=== PATIENT | male | born 1945 | race Caucasian/White ===

== ENCOUNTER 2018-03-07 01:06 | Emergency (ER) | payer OTHER ==
[~2018-03-07] VITALS: Ht 182.9 cm; Wt 88.7 kg
[~2018-03-07 01:06] MED LIST: ATEN25TA PO; DOXY1TAB6 PO; ESOM20CA PO; LEVO125T5 PO; THEA1CAP PO
[2018-03-07 01:10] VITALS: TEMP 36.7; Ht 182.9 cm; Wt 88.7 kg
--- NOTE | 2018-03-07 02:02 | EMERGENCY ROOM VISIT NOTE ---
History Report prepared by Rudy: India Cintron Under the Supervision of: Dr. Jennifer Giron D.O. First contact with patient: 01:40 Chief Complaint: ILLNESS Stated Complaint: CHEST TIGHTNESS,LIKE FLU History of Present Illness The patient is a 72 year old male who presents to the Emergency Room with complaints of persistent left ear ache since March 05, 2018. He states that he had chills for five hours the day before he developed the ear pain. He was seen by his PCP at that time and was diagnosed with a left ear infection and influenza B and was prescribed Cefdinir. He states his brain feels sore. He notes headache, eye pain, cough associated with chest tightness, and joint pain. He states that he has been alternating Tylenol and Ibuprofen, though no relief. He denies any history of migraines. He denies a history of regular sinus infections. Source of History: patient Onset: March 05, 2018 Position: ear (left) Quality: ache Timing: other (persistent) Associated Symptoms: + chills, + headache, + cough, + chest pain (tightness) Note: Notes eye pain and joint pain. Review of Systems See HPI for pertinent positives & negatives. A total of 10 systems reviewed and were otherwise negative. Past Medical & Surgical Medical Problems: (1) Cholelithiasis Nos (2) Disorders Of Thyroid Nec (3) Hypertension Nos (4) Hypothyroidism Nos Surgical Problems: (1) History of cholecystectomy Family History Cancer Diabetes mellitus Heart disease Social History Smoking Status: Current Every Day Smoker Smokeless Tobacco Use: No Alcohol Use: none Drug Use: none Marital Status: Housing Status: lives with family Occupation Status: employed Current/Historical Medications Scheduled Atenolol (Tenormin), 25 MG PO DAILY Cefdinir (Omnicef), 300 MG PO Q12H Levothyroxine Sodium (Levothyroxine Sodium), 137 MCG PO DAILY Allergies Coded Allergies: Sulfa Antibiotics (Verified Allergy, Unknown, rash, 01/14/15) Naproxen (Verified Adverse Reaction, Mild, RASH, 01/14/15) Physical Exam Vital Signs Date Time Temp Pulse Resp B/P (MAP) Pulse Ox O2 Delivery O2 Flow Rate FiO2 03/07/18 05:17 82 20 144/87 98 03/07/18 04:21 62 18 141/87 98 Room Air 03/07/18 03:17 62 03/07/18 03:13 61 18 141/88 96 Room Air 03/07/18 01:10 36.7 76 20 125/80 97 Room Air Physical Exam HEENT: Head - normocephalic and atraumatic Pupils are equal, round, and reactive to light. Extraocular eye muscles are intact, and sclera are anicteric. Ears - Left TM was scarred down with no discernible cone of light, Right TM normal. Nose - moist nasal mucosa without discharge. Mouth - moist buccal mucosa. Oropharynx is nonerythematous and there is no tonsillar exudate or edema noted. Neck: Supple; no JVD, nuchal rigidity, cervical lymphadenopathy, or auscultated bruits. Heart: Regular rate and rhythm. There is a normal S1 and S2 with no murmurs, clicks, or gallops appreciated. Lungs: Clear to auscultation bilaterally with no wheezes, rales, or rhonchi. Abdomen: Soft, completely nontender, nondistended, with good bowel sounds. There are no palpable pulsatile masses or hepatosplenomegaly. There is no guarding, rigidity, or rebound noted. Extremities: No evidence of cyanosis, clubbing, or edema. There are easily palpable peripheral pulses. Skin: warm and dry with good turgor and no rashes. Medical Decision & Procedures ER Provider Diagnostic Interpretation: Radiology results as stated below per my review and interpretation: CHEST XR: No cardiomegaly. No obvious pulmonary infiltrate or consolidation. Radiology results as stated below per my review and the radiologist's interpretation: CT SINUSES: Fluid level in the right maxillary sinus indicates acute sinusitis. Underpneumatized left mastoid. Left middle ear is aerated. No regional soft tissue swelling. Radiologist: Derek Obrien MD Study ready at 03:10 and initial results transmitted at 03:26 CT HEAD: Fluid level in the right maxillary sinus suggesting acute sinusitis. No acute intracranial findings. Mastoids and middle ears appear to be clear. Radiologist: Derek Obrien MD Study ready at 03:10 and initial results transmitted at 03:12 Laboratory Results 03/07/18 02:50 Red Blood Count 4.87, Mean Corpuscular Volume 85.2, Mean Corpuscular Hemoglobin 29.4, Mean Corpuscular Hemoglobin Concent 34.5, Mean Platelet Volume 9.2, Neutrophils (%) (Auto) 72.3, Lymphocytes (%) (Auto) 13.5, Monocytes (%) (Auto) 13.8, Eosinophils (%) (Auto) 0.2, Basophils (%) (Auto) 0.0, Neutrophils # (Auto ) 2.94, Lymphocytes # (Auto) 0.55, Monocytes # (Auto) 0.56, Eosinophils # (Auto ) 0.01, Basophils # (Auto) 0.00 03/07/18 02:50 Test 03/07/18 02:50 White Blood Count 4.07 K/uL (4.8-10.8) Red Blood Count 4.87 M/uL (4.7-6.1) Hemoglobin 14.3 g/dL (14.0-18.0) Hematocrit 41.5 % (42-52) Mean Corpuscular Volume 85.2 fL (80-100) Mean Corpuscular Hemoglobin 29.4 pg (25-34) Mean Corpuscular Hemoglobin Concent 34.5 g/dl (32-36) Platelet Count 127 K/uL (130-400) Mean Platelet Volume 9.2 fL (7.4-10.4) Neutrophils (%) (Auto) 72.3 % Lymphocytes (%) (Auto) 13.5 % Monocytes (%) (Auto) 13.8 % Eosinophils (%) (Auto) 0.2 % Basophils (%) (Auto) 0.0 % Neutrophils # (Auto) 2.94 K/uL (1.4-6.5) Lymphocytes # (Auto) 0.55 K/uL (1.2-3.4) Monocytes # (Auto) 0.56 K/uL (0.11-0.59) Eosinophils # (Auto) 0.01 K/uL (0-0.5) Basophils # (Auto) 0.00 K/uL (0-0.2) RDW Standard Deviation 46.5 fL (36.4-46.3) RDW Coefficient of Variation 14.8 % (11.5-14.5) Immature Granulocyte % (Auto) 0.2 % Immature Granulocyte # (Auto) 0.01 K/uL (0.00-0.02) Anion Gap 4.0 mmol/L (3-11) Est Creatinine Clear Calc Drug Dose 92.0 ml/min Estimated GFR () 103.8 Estimated GFR (Non- 89.6 BUN/Creatinine Ratio 13.2 (10-20) Calcium Level 8.1 mg/dl (8.5-10.1) Laboratory results per my review. Medications Administered Medications (Trade) Dose Ordered Sig/Kavya Route Start Time Stop Time Status Last Admin Dose Admin Sodium Chloride 1,000 ml @ 999 mls/hr Q1H1M STAT IV 03/07/18 02:35 03/07/18 03:35 DC 03/07/18 03:12 999 MLS/HR Hydromorphone HCl (Dilaudid Inj) 1 mg NOW STAT IV 03/07/18 02:35 03/07/18 02:39 DC 03/07/18 02:53 1 MG Ketorolac Tromethamine (Toradol Inj) 30 mg NOW STAT IV 03/07/18 04:00 03/07/18 04:01 DC 03/07/18 04:17 30 MG Doxycycline Hyclate (Vibramycin Cap) 100 mg ONE ONCE PO 03/07/18 04:45 03/07/18 04:46 DC 03/07/18 05:00 100 MG Procedure 0235: Ordered Dilaudid 1 mg IV and Sodium Chloride 1,000 ml @ 999 mls/hr IV. 0400: Ordered Toradol 30 mg IV Ordered Doxycycline 100 mg PO ED Course 0146: Past medical records reviewed. The patient was evaluated in room A10. A complete history and physical exam was performed. IV lock was established. Labs were drawn as above. 0235: Ordered Dilaudid 1 mg IV for the headache and Sodium Chloride 1,000 ml @ 999 mls/hr IV. 0357: I reassessed the patient at this time. He reports moderate relief in his head. He is requesting more pain medication for the headache. He developed a pain in his right side of his abdomen. He reports the abdominal pain has been ongoing for a long time and is intermittent. He has had two US previously, which were normal. 0400: Ordered Toradol 30 mg IV 0438: I ordered Augmentin for the acute sinusitis. I reassessed the patient at this time. He is feeling better. The headache is gone. He states that he is allergic to Augmentin. 0445: Ordered doxycycline-100 mg 0458: I reassessed the patient at this time. He states that he has taken Doxycycline before without issue. Prescribed Doxycycline 100 mg PO. I discussed the results and treatment plan with the patient. I answered all pertaining questions that he had. He expressed understanding and verbalized agreement. The patient will be discharged home. Medical Decision The patient is a 72 year old male who presents to the ED with severe headache and cough. Differential diagnosis includes meningitis, influenza, sinusitis, viral illness, and PNA. Lab results showed: WBC 4.0; Stable H&H. Normal renal function. Normal glucose. This is a 72-year-old male patient who presents to the emergency department with a complaint that his brain was hurting and that he had cough. The patient had previously been diagnosed with influenza and a left otitis media. He was started on antibiotics-Cefdinir. The patient states that he is not getting any better. He was unable to sleep due to the head pain. CT scan of the brain was unremarkable. CT scan of the sinuses revealed a right maxillary sinusitis. This is most likely the cause of the patient's head pain. He had no significant leukocytosis or fever to suggest sepsis or a more significant infection. I will switch the patient's antibiotic from Cefdinir to doxycycline. The patient was feeling much better at the time of discharge. I have asked him to follow-up with his PCP on Friday if he has persistent symptoms. Medication Reconcilliation Current Medication List: was personally reviewed by me Blood Pressure Screening Patient's blood pressure: Normal blood pressure Impression Primary Impression: Maxillary sinusitis, acute Scribe Attestation The scribe's documentation has been prepared under my direction and personally reviewed by me in its entirety. I confirm that the note above accurately reflects all work, treatment, procedures, and medical decision making performed by me. Departure Information Dispostion Home / Self-Care Referrals No Doctor, Assigned (PCP) Forms HOME CARE DOCUMENTATION FORM, IMPORTANT VISIT INFORMATION, WORK / SCHOOL INSTRUCTIONS Patient Instructions ED Sinusitis Garrett Diaz, My [facility] Additional Instructions Rest with your head elevated. Stop the Cefdinir Take doxycycline - every 12 hours for next 7 days If symptoms persist, follow up with PCP Problem Qualifiers Primary Impression: Maxillary sinusitis, acute Recurrence: non-recurrent Qualified Codes: J01.00 - Acute maxillary sinusitis, unspecified
[2018-03-07] MEDS ORDERED: LEVO137T3 PO (02:08)
[2018-03-07] MEDS ORDERED: CEFD1CAP14 PO (02:10)
[2018-03-07] MEDS ORDERED: HYDROmorphone INJ 1 MG/ML SYR IV STA (02:35)
[2018-03-07] MEDS ORDERED: SODIUM CHLORIDE 0.9% 1000ML 1,000 ML IV STA (02:35)
[2018-03-07 03:03] LABS: EOS % 0.2 %; EOS ABS # 0.01 K/uL (0-0.5); HEMATOCRIT 41.5 % (42-52); HEMOGLOBIN 14.3 g/dL (14.0-18.0); IG# 0.01 K/uL (0.00-0.02); LYMPH % 13.5 %; LYMPH ABS # 0.55 K/uL (1.2-3.4); MEAN CELL VOLUME 85.2 fL (80-100); MEAN CORPUSCULAR HEMOGLOBIN 29.4 pg (25-34); MEAN CORPUSCULAR HGB CONC 34.5 g/dl (32-36); MEAN PLATELET VOLUME 9.2 fL (7.4-10.4); MONO % 13.8 %; MONO ABS # 0.56 K/uL (0.11-0.59); NEUT % 72.3 %; NEUT ABS # 2.94 K/uL (1.4-6.5); PLATELET COUNT 127 K/uL (130-400); RED CELL DISTRIBUTION WIDTH CV 14.8 % (11.5-14.5); RED CELL DISTRIBUTION WIDTH SD 46.5 fL (36.4-46.3); WHITE BLOOD COUNT 4.07 K/uL (4.8-10.8)
[2018-03-07 03:23] LABS: CALCIUM 8.1 mg/dl (8.5-10.1); CREATININE 0.82 mg/dl (0.60-1.40); POTASSIUM 3.9 mmol/L (3.5-5.1)
[2018-03-07] MEDS ORDERED: KETOROLAC TROMETHAMINE 30 MG/ML VIAL IV STA (04:00)
[2018-03-07] MEDS ORDERED: AMOXICILLIN/CLAVULANATE TAB 875 MG TAB PO ONE (04:45)
[2018-03-07] MEDS ORDERED: DOXYCYCLINE HYCLATE 100 MG CAP PO ONE (04:45)
[2018-03-07 05:17] VITALS: BP 144/87; PULSE 82; O2SAT 98
--- NOTE | 2018-03-07 06:12 | DIAGNOSTIC IMAGING REPORT ---
HEAD WITHOUT CONTRAST (CT) CT DOSE: HISTORY: Headache. Mental status change. severe [place] TECHNIQUE: Multiaxial CT images of the head were performed without the use of intravenous contrast. A dose lowering technique was utilized adhering to the principles of ALARA. Comparison: None. Findings: Mucosal thickening of the ethmoid and right maxillary sinuses. Small amount of fluid within the right maxillary sinus. Sclerosis left mastoid air cells. The calvarium and skull base are intact. The ventricles and sulci are within normal limits. There is no mass, hematoma, midline shift, or acute infarct. Impression: 1. No acute intracranial abnormality. 2. Mild age-related atrophy and chronic small vessel change. 3. Sclerosis left mastoid air cells. 4. Mucosal thickening and fluid within the right maxillary as well as ethmoid sinuses. The above report was generated using voice recognition software. It may contain grammatical, syntax or spelling errors. Electronically signed by: Ernesto Galloway M.D. 03/07/2018 6:11 AM Dictated Date/Time: 03/07/2018 6:09 AM
--- NOTE | 2018-03-07 06:15 | DIAGNOSTIC IMAGING REPORT ---
SINUSES-MAXILLOFACIAL W/O CT DOSE: HISTORY: Pain. Headache. eval for fluid collection TECHNIQUE: Multiaxial CT images of the paranasal sinuses were performed and reformatted in the coronal plane without the use of contrast. A dose lowering technique was utilized adhering to the principles of ALARA. COMPARISON: None. FINDINGS: Moderate hyperplastic change nasal turbinates. Mild/moderate underlying polypoid change. Moderate mucosal thickening of the frontal ethmoid and right maxillary sinuses. No bony erosive process. The right ostiomeatal unit is occluded. Severe soft tissue narrowing left ostiomeatal unit. Sclerosis left mastoid air cells. The orbits are unremarkable. IMPRESSION: 1. Sclerosis left mastoid air cells. 2. Mucosal thickening of the bulk of the major sinuses. 3. Hyperplastic and polypoid change of the nasal turbinates bilaterally. The above report was generated using voice recognition software. It may contain grammatical, syntax or spelling errors. Electronically signed by: Ernesto Galloway M.D. 03/07/2018 6:14 AM Dictated Date/Time: 03/07/2018 6:12 AM
--- NOTE | 2018-03-07 06:17 | DIAGNOSTIC IMAGING REPORT ---
CHEST 2 VIEWS ROUTINE CLINICAL HISTORY: cough/flu dyspnea COMPARISON STUDY: 01/14/2015 FINDINGS: The bones soft tissues and hemidiaphragms are normal. The cardiomediastinal silhouette is normal. The lungs are clear. The pulmonary vasculature is normal. IMPRESSION: Negative chest. The above report was generated using voice recognition software. It may contain grammatical, syntax or spelling errors. Electronically signed by: Ernesto Galloway M.D. 03/07/2018 6:15 AM Dictated Date/Time: 03/07/2018 6:15 AM
[2018-03-07] MEDS ORDERED: DOXY100C76 PO (07:03)
== END 2018-03-07 05:18 | disposition home or self-care (01) ==
LOC: C.EDB 01:08 → C.EDA 05:18
DX: J01.00 Acute maxillary sinusitis, unspecified (principal); I10 Essential (primary) hypertension; E03.9 Hypothyroidism, unspecified; F17.200 Nicotine dependence, unspecified, uncomplicated; Z90.49 Acquired absence of other specified parts of digestive tract; Z88.1 Allergy status to other antibiotic agents; Z88.6 Allergy status to analgesic agent; Z83.3 Family history of diabetes mellitus

== ENCOUNTER 2018-03-23 07:24 | Emergency (ER) | payer OTHER ==
[~2018-03-23] VITALS: Ht 182.9 cm; Wt 88.0 kg
[~2018-03-23 07:24] MED LIST changes: +CEFD1CAP14 PO; +DOXY100C76 PO; -DOXY1TAB6 PO; -ESOM20CA PO; -LEVO125T5 PO; +LEVO137T3 PO; -THEA1CAP PO
[2018-03-23 07:29] VITALS: TEMP 37.2; O2SAT 97; Ht 182.9 cm; Wt 88.0 kg
[2018-03-23] MEDS ORDERED: SODIUM CHLORIDE 0.9% 1000ML 1,000 ML IV STA (07:36)
[2018-03-23 08:02] LABS: BASO % 0.1 %; BASO ABS # 0.01 K/uL (0-0.2); EOS % 0.4 %; EOS ABS # 0.06 K/uL (0-0.5); HEMATOCRIT 43.7 % (42-52); HEMOGLOBIN 15.1 g/dL (14.0-18.0); IG# 0.08 K/uL (0.00-0.02); LYMPH % 7.9 %; LYMPH ABS # 1.06 K/uL (1.2-3.4); MEAN CELL VOLUME 86.2 fL (80-100); MEAN CORPUSCULAR HEMOGLOBIN 29.8 pg (25-34); MEAN CORPUSCULAR HGB CONC 34.6 g/dl (32-36); MEAN PLATELET VOLUME 9.6 fL (7.4-10.4); MONO % 11.1 %; MONO ABS # 1.49 K/uL (0.11-0.59); NEUT % 79.9 %; NEUT ABS # 10.75 K/uL (1.4-6.5); PLATELET COUNT 154 K/uL (130-400); RED CELL DISTRIBUTION WIDTH CV 15.3 % (11.5-14.5); RED CELL DISTRIBUTION WIDTH SD 48.3 fL (36.4-46.3); WHITE BLOOD COUNT 13.45 K/uL (4.8-10.8)
[2018-03-23 08:20] LABS: ALBUMIN 3.4 gm/dl (3.4-5.0); ALT/SGPT 27 U/L (12-78); AST/SGOT 16 U/L (15-37); BLOOD UREA NITROGEN 11 mg/dl (7-18); CALCIUM 8.7 mg/dl (8.5-10.1); CARBON DIOXIDE 25 mmol/L (21-32); CREATININE 0.91 mg/dl (0.60-1.40); GLUCOSE 125 mg/dl (70-99); LIPASE 211 U/L (73-393); POTASSIUM 4.1 mmol/L (3.5-5.1); SODIUM 138 mmol/L (136-145)
--- NOTE | 2018-03-23 08:20 | DIAGNOSTIC IMAGING REPORT ---
CHEST ONE VIEW PORTABLE CLINICAL HISTORY: EVALUATE ALTERED MENTAL STATUS/WEAKNESS COMPARISON STUDY: Chest radiograph March 07, 2018. FINDINGS: Lung volumes are normal. No pneumothorax or pleural effusion is noted. Cardiac size is normal. Mediastinal contours are normal. There is no evidence for pulmonary edema. There is no consolidation. The appearance of the chest is unchanged. IMPRESSION: No acute cardiopulmonary findings. Electronically signed by: John Nova M.D. 03/23/2018 8:18 AM Dictated Date/Time: 03/23/2018 8:15 AM
[2018-03-23 08:29] LABS: ALKALINE PHOSPHATASE 80 U/L (45-117); CKMB < 0.5 ng/ml (0.5-3.6); TOTAL PROTEIN 7.1 gm/dl (6.4-8.2)
[2018-03-23 09:22] VITALS: BP 118/80; PULSE 63
--- NOTE | 2018-03-23 09:34 | EMERGENCY ROOM VISIT NOTE ---
History Report prepared by Rudy: Radha Longoria Under the Supervision of: Dr. Keyon Hobson D.O. First contact with patient: 07:32 Chief Complaint: FLU LIKE SX Stated Complaint: WEAK,FLU ON 03.04.18 History of Present Illness The patient is a 72 year old male who presents to the Emergency Room with complaints of worsening flu like symptoms starting a few weeks ago. The patient states that he was diagnosed with Influenza B last month. He reports that since then he has been extremely weak. He reports that it "feels like his body is shutting down." He reports that he saw his PCP and she informed him that it just takes time. The patient notes that he was on steroids and antibiotics. He states that his last dose was 6 days ago. The patient complains of body aches and fatigue. He currently rates his pain as a 2/10 in severity. He notes that he has slept for the past 2 days and is struggling to keep his eyes open this morning. The patient denies any new medications. Source of History: patient Onset: a few weeks ago Position: other (global) Symptom Intensity: 2/10 Quality: other (flu like ) Timing: worsening Associated Symptoms: + fatigue, + weakness Note: The patient complains of body aches. Review of Systems See HPI for pertinent positives & negatives. A total of 10 systems reviewed and were otherwise negative. Past Medical & Surgical Medical Problems: (1) Cholelithiasis Nos (2) Disorders Of Thyroid Nec (3) Hypertension Nos (4) Hypothyroidism Nos Surgical Problems: (1) History of cholecystectomy Family History Cancer Diabetes mellitus Heart disease Social History Smoking Status: Current Every Day Smoker Alcohol Use: none Drug Use: none Marital Status: Housing Status: lives with family Occupation Status: employed Current/Historical Medications Scheduled Atenolol (Tenormin), 25 MG PO DAILY Levothyroxine Sodium (Levothyroxine Sodium), 137 MCG PO DAILY Allergies Coded Allergies: Sulfa Antibiotics (Verified Allergy, Unknown, rash, 03/23/18) Naproxen (Verified Adverse Reaction, Mild, RASH, 03/23/18) Physical Exam Vital Signs Date Time Temp Pulse Resp B/P (MAP) Pulse Ox O2 Delivery O2 Flow Rate FiO2 03/23/18 09:22 63 16 118/80 03/23/18 07:56 71 03/23/18 07:29 37.2 78 20 133/89 97 Room Air Physical Exam CONSTITUTIONAL/VITAL SIGNS: Reviewed / noted above. GENERAL: Non-toxic in appearance. INTEGUMENTARY: Warm, dry, and [place]. HEAD: Normocephalic. EYES: without scleral icterus or trauma. ENT/OROPHARYNX: clear and moist. LYMPHADENOPATHY/NECK: Is supple without lymphadenopathy or meningismus. RESPIRATORY: Lungs clear and equal. CARDIOVASCULAR: Regular rate and rhythm. GI/ABDOMEN: Soft and nontender. No organomegaly or pulsatile mass. No rebound or guarding. Normal bowel sounds. EXTREMITIES: Warm and well perfused. BACK: No CVA tenderness. NEUROLOGICAL: Intact without focal deficits. PSYCHIATRIC: normal affect. MUSCULOSKELETAL: Normally developed with good muscle tone. Medical Decision & Procedures ER Provider Diagnostic Interpretation: Radiology results as stated below per my review and radiologist interpretation: CHEST ONE VIEW PORTABLE CLINICAL HISTORY: EVALUATE ALTERED MENTAL STATUS/WEAKNESS COMPARISON STUDY: Chest radiograph March 07, 2018. FINDINGS: Lung volumes are normal. No pneumothorax or pleural effusion is noted. Cardiac size is normal. Mediastinal contours are normal. There is no evidence for pulmonary edema. There is no consolidation. The appearance of the chest is unchanged. IMPRESSION: No acute cardiopulmonary findings. Electronically signed by: John Nova M.D. 03/23/2018 8:18 AM Dictated Date/Time: 03/23/2018 8:15 AM Laboratory Results 03/23/18 07:50 Red Blood Count 5.07, Mean Corpuscular Volume 86.2, Mean Corpuscular Hemoglobin 29.8, Mean Corpuscular Hemoglobin Concent 34.6, Mean Platelet Volume 9.6, Neutrophils (%) (Auto) 79.9, Lymphocytes (%) (Auto) 7.9, Monocytes (%) (Auto) 11.1, Eosinophils (%) (Auto) 0.4, Basophils (%) (Auto) 0.1, Neutrophils # (Auto ) 10.75, Lymphocytes # (Auto) 1.06, Monocytes # (Auto) 1.49, Eosinophils # (Auto ) 0.06, Basophils # (Auto) 0.01 03/23/18 07:50 Test 03/23/18 07:50 03/23/18 08:20 White Blood Count 13.45 K/uL (4.8-10.8) Red Blood Count 5.07 M/uL (4.7-6.1) Hemoglobin 15.1 g/dL (14.0-18.0) Hematocrit 43.7 % (42-52) Mean Corpuscular Volume 86.2 fL (80-100) Mean Corpuscular Hemoglobin 29.8 pg (25-34) Mean Corpuscular Hemoglobin Concent 34.6 g/dl (32-36) Platelet Count 154 K/uL (130-400) Mean Platelet Volume 9.6 fL (7.4-10.4) Neutrophils (%) (Auto) 79.9 % Lymphocytes (%) (Auto) 7.9 % Monocytes (%) (Auto) 11.1 % Eosinophils (%) (Auto) 0.4 % Basophils (%) (Auto) 0.1 % Neutrophils # (Auto) 10.75 K/uL (1.4-6.5) Lymphocytes # (Auto) 1.06 K/uL (1.2-3.4) Monocytes # (Auto) 1.49 K/uL (0.11-0.59) Eosinophils # (Auto) 0.06 K/uL (0-0.5) Basophils # (Auto) 0.01 K/uL (0-0.2) RDW Standard Deviation 48.3 fL (36.4-46.3) RDW Coefficient of Variation 15.3 % (11.5-14.5) Immature Granulocyte % (Auto) 0.6 % Immature Granulocyte # (Auto) 0.08 K/uL (0.00-0.02) Anion Gap 7.0 mmol/L (3-11) Est Creatinine Clear Calc Drug Dose 82.9 ml/min Estimated GFR () 98.6 Estimated GFR (Non- 85.1 BUN/Creatinine Ratio 11.6 (10-20) Calcium Level 8.7 mg/dl (8.5-10.1) Magnesium Level 2.1 mg/dl (1.8-2.4) Total Bilirubin 0.7 mg/dl (0.2-1) Direct Bilirubin 0.2 mg/dl (0-0.2) Aspartate Amino Transf (AST/SGOT) 16 U/L (15-37) Alanine Aminotransferase (ALT/SGPT) 27 U/L (12-78) Alkaline Phosphatase 80 U/L (45-117) Total Creatine Kinase 41 U/L (39-308) Creatine Kinase MB < 0.5 ng/ml (0.5-3.6) Creatine Kinase MB Ratio (0-3.0) Troponin I < 0.015 ng/ml (0-0.045) Total Protein 7.1 gm/dl (6.4-8.2) Albumin 3.4 gm/dl (3.4-5.0) Lipase 211 U/L (73-393) Thyroid Stimulating Hormone (TSH) 1.070 uIu/ml (0.300-4.500) Urine Color YELLOW Urine Appearance CLEAR (CLEAR) Urine pH 7.0 (4.5-7.5) Urine Specific [place] 1.008 (1.000-1.030) Urine Protein NEG (NEG) Urine Glucose (UA) NEG (NEG) Urine Ketones NEG (NEG) Urine Occult Blood NEG (NEG) Urine Nitrite NEG (NEG) Urine Bilirubin NEG (NEG) Urine Urobilinogen NEG (NEG) Urine Leukocyte Esterase NEG (NEG) Urine WBC (Auto) 0 /hpf (0-5) Urine RBC (Auto) 0-4 /hpf (0-4) Urine Hyaline Casts (Auto) 0 /lpf (0-5) Urine Epithelial Cells (Auto) 0-5 /lpf (0-5) Urine Bacteria (Auto) NEG (NEG) Laboratory results as stated above per my review. Medications Administered Medications (Trade) Dose Ordered Sig/Kavya Route Start Time Stop Time Status Last Admin Dose Admin Sodium Chloride 1,000 ml @ 300 mls/hr Q3H20M STAT IV 03/23/18 07:36 03/23/18 10:55 03/23/18 08:03 300 MLS/HR ECG Per My Interpretation Indication: weakness Rate (beats per minute): 73 Rhythm: normal sinus Findings: no ectopy, other (no ST elevations) ED Course 0736: Ordered NSS 1000 ml @ 300 mls/hr IV. 0739: Previous medical records were reviewed. The patient was evaluated in room A10. A complete history and physical examination was performed. Past EMR reveals that the patient was diagnosed with Influenza B on March 07. A CT of his had was done at that time and was negative for any acute findings. 0924: On reevaluation, the patient is resting comfortably. I discussed the results and findings with the patient. He verbalized agreement of the treatment plan. The patient was discharged home. Medical Decision Differential includes acute coronary syndrome, myocardial infarction, CVA, TIA, anemia, infection, pneumonia, UTI, pyelonephritis, poor nutrition, dehydration, electrolyte disturbance,hypoglycemia.. This is a 72-year-old male who presents to the ED with a chief complaint of generalized weakness. The patient states that he has been feeling weak since he got the flu on 03/04/18. He states that his body feels as though it is shutting down. The last couple of days he slept a lot. He denies any other specific symptoms. Denies chest pains, shortness of breath, headaches, focal weakness, blood in stools. The patient's exam was unremarkable. An EKG shows a normal sinus rhythm, chest x-ray was negative for acute disease, white blood cell count was slightly elevated at 13.45. The patient saw his PCP last week was placed on steroids. Complete metabolic panel was normal, troponin was negative and a TSH was normal, urine did not show infection. The patient was told the results of the test. The patient is felt to be stable for discharge and outpatient follow-up. Medication Reconcilliation Current Medication List: was personally reviewed by me Blood Pressure Screening Patient's blood pressure: Normal blood pressure Blood pressure disposition: Did not require urgent referral Impression Primary Impression: Weakness Scribe Attestation The scribe's documentation has been prepared under my direction and personally reviewed by me in its entirety. I confirm that the note above accurately reflects all work, treatment, procedures, and medical decision making performed by me. Departure Information Dispostion Discharge/Transfer to [facility] Referrals Gerda Boswell D.O. (PCP) Forms HOME CARE DOCUMENTATION FORM, IMPORTANT VISIT INFORMATION Patient Instructions ED Weakness SEUN, [facility] Additional Instructions Follow-up with your doctor for further care and evaluation in 1-2 days. Return to the emergency department for worsening or new symptoms or any concerns. You have been examined and treated today on an emergency basis only. This is not a substitute for, or an effort to provide, complete comprehensive medical care. It is impossible to recognize and treat all injuries or illnesses in a single emergency department visit. It is therefore important that you follow up closely with your doctor. Call as soon as possible for an appointment.
== END 2018-03-23 09:46 | disposition home or self-care (01) ==
LOC: C.EDB 07:26 → C.EDA 09:46
DX: R53.1 Weakness (principal); E03.9 Hypothyroidism, unspecified; I10 Essential (primary) hypertension; F17.200 Nicotine dependence, unspecified, uncomplicated; Z88.2 Allergy status to sulfonamides; Z88.6 Allergy status to analgesic agent